=== PATIENT | female | born 1990 | race Caucasian/White ===

== ENCOUNTER 2024-09-23 20:51 | Emergency (ER) | payer OTHER ==
[2024-09-23 21:15] VITALS: BP 141/95; PULSE 91; RESP 16; TEMP 97.7; BMI 25.4
[2024-09-23] MEDS ORDERED: ACETAMINOPHEN 500 MG TABLET (FP) ONE (21:21)
[2024-09-23] MEDS ORDERED: DIPHTH,PERTUSS(ACELL),TET 0.5 ML DISP.SYRIN IM ONE (21:22)
[2024-09-23] MEDS ORDERED: CLINDAMYCIN HCL 150 MG CAPSULE (FP) ONE (21:22)
[2024-09-23] MEDS: CLINDAMYCIN HCL 150 MG CAPSULE (FP) PO ONE (21:30)
[2024-09-23] MEDS: DIPHTH,PERTUSS(ACELL),TET 0.5 ML DISP.SYRIN IM ONE (21:30)
[2024-09-23] MEDS: ACETAMINOPHEN 500 MG TABLET (FP) PO ONE (21:32)
[2024-09-23] MEDS: BACITRACIN ZINC 15 GM TUBE TOPICAL OINTMENT TP ONE (21:32)
[2024-09-23] MEDS: CEPHALEXIN MONOHYDRATE 500 MG CAPSULE (UD) PO ONE (21:33)
== END 2024-09-23 21:39 | disposition home or self-care (01) ==
LOC: FER 20:51
PROC: 3E0234Z Introduction of Serum, Toxoid and Vaccine into Muscle, Percutaneous Approach (ICD-10-PCS; principal; 2024-09-23)
DX: T25.221A Burn of second degree of right foot, initial encounter (principal); L03.115 Cellulitis of right lower limb; Z23 Encounter for immunization; X19.XXXA Contact with other heat and hot substances, initial encounter
CPT/HCPCS: 90471; 90715; 99284-25